=== PATIENT | male | born 1965 | race Hispanic/Latino ===

== ENCOUNTER 2017-05-09 09:41 | Outpatient (CLI) | payer BC ==
[2017-05-09 18:24] LABS: Cardiac Risk 4.9 (Less than 4.5)
== END 2017-05-09 09:42 | disposition home or self-care (01) ==
LOC: NAVSJIPCSP 09:41
PROVIDERS: ATTEND Internal Medicine
DX: E78.5 Hyperlipidemia, unspecified (principal)
CPT/HCPCS: 36415; 80061